=== PATIENT | female | born 1965 | race Caucasian/White ===

== ENCOUNTER 2017-01-08 12:08 | Emergency (ER) | payer MEDICARE, MEDICAID ==
[~2017-01-08] VITALS: Ht 172.7 cm; Wt 63.6 kg
[~2017-01-08 12:08] MED LIST: ALBU8.5H2 IH; AMOX-366 PO; AMOX500C2 PO; CETI10TA20 PO; CYAN50002 SL; DIAZ10TA3 PO; DICL75TA6 PO; DIVA250T4 PO; DOCU-42 PO; ESTR1TAB24 PO; LEVOXYL150 MCG PO; MAGN64TA7 PO; MELA1TAB11 PO; MORPHINE 20 MG/ML PO; MTH10T PO; MTH4T PO; OXYC1TAB24 PO; VALA1000 PO
[2017-01-08 12:16] VITALS: BP 136/88; PULSE 87; RESP 15; O2SAT 98
--- NOTE | 2017-01-08 14:06 | ED.REPORT ---
HPI-General Illness Date of Service January 08, 2017 ED Provider: Goldy Salcedo DO Pt is a 51 y.o. female with a hx of post herpetic neuralgia secondary to shingles and anesthesia dolorosa s/p brain surgery x3 secondary to trigeminal neuralgia who presents to the ED c/o severe right sided facial pain onset yesterday. She reports associated right upper extremity pain described as burning and tingling, which she states is new. Pt states that she has been taking her Valtrex (3g) and Oxycodone with no relief. Pt is currently being followed by Dr. Butler at . Nursing Notes Stated Complaint: RIGHT FACE PAIN Chief Complaint: General Complaint Nursing Notes Reviewed: Yes Allergies: Coded Allergies: celecoxib (Verified Allergy, Severe, 12/25/13) ongoing use caused critically low white count chicken derived (Verified Allergy, Severe, Shortness of Breath, 12/25/13) erythromycin ethylsuccinate (Verified Allergy, Severe, n/v, 12/25/13) latex (Verified Allergy, Severe, Anaphylaxis, 12/25/13) ondansetron (Verified Allergy, Severe, Anaphylaxis, 12/25/13) pregabalin (Verified Allergy, Unknown, 07/19/16) Uncoded Allergies: DETERGENTS (Allergy, Severe, Hives, 07/01/09) lyrica (Allergy, Unknown, Anaphylaxis, 06/07/08) Scheduled Amoxicillin (Amoxicillin) 500 Mg Capsule 500 MG PO TID Amoxicillin/Clav K 875-125 mg (Augmentin 875-125 mg) 1 Each Tablet 1 TABLET PO BID Cetirizine Chew (Cetirizine Chew) 10 Mg Tab.chew 10 MG PO DAILY Cyanocobalamin (Vitamin B-12) (Vitamin B-12) 5,000 Mcg Tab.subl 5,000 MCG SL DAILY Divalproex (Divalproex) 250 Mg Tablet.dr 250 MG PO QAM Swallowed whole without chewing to avoid local irritation of the mouth and throat. Divalproex (Divalproex) 250 Mg Tablet.dr 5 TAB PO QPM Swallowed whole without chewing to avoid local irritation of the mouth and throat. Docusate Sod-Expunged Drug, Do Not Renew! (Docusate Sod-Expunged Drug, Do Not Renew!) 100 Mg Capsule 100 MG PO HS Estradiol (Estradiol) 1 Mg Tablet 1 MG PO DAILY Levothyroxine-Expunged Drug, Do Not Renew! (Levoxyl-Expunged Drug, Do Not Renew! ) 150 Mcg Tablet 150 MCG PO DAILY Magnesium Chloride (Mag64) 64 Mg Tablet.er 64 MG PO BID Melatonin/Pyridoxine (Melatonin 3 mg Tablet) 1 Each Tablet 1 EACH PO HS Methadone (Methadone) 10 Mg Tab 10 MG PO TID Methylprednisolone (Medrol) 21 Tab/Pkg Tablet 1 TAB PO UD Follow package instructions Valacyclovir HCl-Expunged Drug, Do Not Renew! (Valtrex-Expunged Drug, Do Not Renew!) 1,000 Mg Tablet 1 TAB PO BID Scheduled PRN ([morphine 20mg/ml]) 0.5-1 ML PO Q4 PRN PRN For Pain Albuterol HFA (Proair HFA) 8.5 Gm Hfa.aer.ad 2 PUFFS IH QID PRN PRN For Shortness of Breath Diazepam-Expunged Drug, Do Not Renew! (Diazepam-Expunged Drug, Do Not Renew!) 10 Mg Tablet 5-10 MG PO BID PRN PRN For Anxiety Diclofenac ER (Diclofenac ER) 75 Mg Tablet.dr 75 MG PO BID PRN PRN For Pain oxyCODONE-Acetaminophen 5-325 mg (oxyCODONE-Acetaminophen 5-325 mg) 1 Each Tablet 1-2 TAB PO Q6H PRN PRN For Pain General Time Seen by MD: 14:06 Chief Complaint Other (Face pain) Hx Obtained From: Patient Arrived By: Walk-in Sudden in Onset?: Yes Symptom Duration: Since onset Location: : Face Quality: Burning, Painful Severity: Current: Severe Severity: Maximum: Severe Similar Sx Previous: Yes Past Medical History Past Medical History Trigeminal neuralgia s/p brain surgery x3 TIA x3 causing short term L sided deficits that have resolved Depression Anxiety Exercise induced asthma Frequent back pain due to previous trauma Hypothyroid Hx pneumonia Hx UTIs Past Surgical History Brain surgery x3 Sinus surgery x6 Appendectomy Tonsillectomy Hysterectomy Back s/p trauma Smoking History Never Smoker Social History Alcohol Use: Denies alcohol use Drug Use: Denies drug use Ambulatory Status Independent Review of Systems Right facial pain Full Review of Systems Musculoskeletal: Reports: Extremity pain (Right upper extremity) Complete sys rev & neg: except as marked. Physical Exam Vital Signs Vital Signs Date Time Temp Pulse Resp B/P Pulse Ox O2 Delivery O2 Flow Rate FiO2 01/08/17 17:30 36.5 77 15 138/78 98 Room Air 01/08/17 12:16 36.5 87 15 136/88 98 Room Air Initial VS: Reviewed Head / Eyes: Atraumatic, Normocephalic Extremities: Vascular intact, Neuro intact Neurologic: Alert, Oriented, Nonfocal General/Constitutional: Awake, Alert, Well appearing, Well developed, Well hydrated, Well nourished, Not toxic appearing Distress / Hydration: Positive: Distress moderate Behavior: Positive: Tearful Appearance / Presentation: Positive: In pain, Uncomfortable Respiratory / Chest: Atraumatic, Breath sounds NL, Breath sounds = bilat, No respiratory distress Cardiovascular: Heart rate NL, Regular rhythm, Heart sounds NL, Peripheral circulation NL Abdomen: Atraumatic, Soft, Non-tender, No distention Skin: Atraumatic, Color NL, No rash, Warm, Dry, Intact Interpretation & Diagnostics Lab Results Interpretation Test 01/08/17 15:18 Hold Purple Top Tube Received (Received) Hold [place] Top Tube Received (Received) Re-Eval/Medical Decision Med Decision/Clinical Course 51-year-old female with a history of anesthesia dolorosa and recurrent shingles presents with pain in her right trigeminal nerve, predominantly in the V2 and V3 distributions. She notes that she has not had this severe pain for some time. She takes oxycodone, uses meditation, and takes Depakote to help with her pain. She is out of Depakote today but has a refill that will be available later this afternoon. She also has Valtrex that she takes 4 times a day when she feels an outbreak of shingles coming on. She notes that she is feeling those type of symptoms here today including tingling and burning on the right side of her face as well as down her right arm. She does not feel that these symptoms are any different than symptoms she has had in the past. She denies any focal neurologic deficits in strength. Initially she appeared very comfortable. She was treated with fentanyl 100 mg, Depakote 1000 IV, and Ativan. Her pain became much more manageable and I also gave her a fourth dose of her Valtrex prior to departure. She appeared much more comfortable and requested to go home. As patient has a long history of this, she is comfortable treating herself with medication she has at home Source of Hx: Old records Time of Eval: 16:34 Re-Evaluation/Progress Note: Pt rechecked. Pt is feeling improved and is requesting to be discharged. Counseled Regarding: Diagnosis, Need for follow-up, When/why to return to ED Discharge & Departure Primary Impression: Trigeminal neuralgia of right side of face Additional Impression: Anesthesia dolorosa in distribution of trigeminal nerve Disposition: Home Discharge Condition All VS Reviewed: Yes Condition: Stable Additional Instructions: Your emergency room visit today consisted of pain relief with fentanyl and Ativan as well as a dose of Valtrex and Depakote to help with the chronic pain. I am glad that you are feeling better after being treated here. I am sorry that you suffer from this difficult problem. Please peanut picker your Depakote and continue your home medications as prescribed. You may return to the emergency department if your symptoms worsen. Referrals: OTHER,PHYSICIAN (PCP) [facility] Arelis Attestation Portions of this note were transcribed by Sera Raymundo. I, Dr. Salcedo personally performed the history, physical exam and medical decision-making; I reviewed and confirmed the accuracy of the information in the transcribed note. Signed by: Arelis Arias, 01/08/17 and 1705 copies to: [facility] Goldy Salcedo DO January 08, 2017 14:06 SERA RAYMUNDO January 08, 2017 14:53
[2017-01-08] MEDS ORDERED: fentaNYL-PF 50 mCg/mL 2 mL Inj IVPUSH ONE ×2 (14:55→17:05)
[2017-01-08] MEDS ORDERED: Valproate Sodium Inj 1,000 MG in Dextrose 5% 100 ML IV ONE (14:55)
[2017-01-08 17:30] VITALS: BP 138/78; PULSE 77; RESP 15; O2SAT 98
== END 2017-01-08 17:31 | disposition home or self-care (01) ==
LOC: SED 12:08
DX: G50.0 Trigeminal neuralgia (principal); Z86.73 Personal history of transient ischemic attack (TIA), and cerebral infarction without residual deficits; E03.9 Hypothyroidism, unspecified; Z90.710 Acquired absence of both cervix and uterus; Z87.440 Personal history of urinary (tract) infections; Z79.899 Other long term (current) drug therapy; Z88.1 Allergy status to other antibiotic agents; Z88.8 Allergy status to other drugs, medicaments and biological substances; Z91.040 Latex allergy status
CPT/HCPCS: 96374; 96375; 96376; 99284; J2060; J3010

== ENCOUNTER 2017-05-31 12:58 | Emergency (ER) | payer MEDICARE, MEDICAID ==
[~2017-05-31] VITALS: Ht 177.8 cm; Wt 60.9 kg
[2017-05-31 13:06] VITALS: BP 108/51; PULSE 95; RESP 18; O2SAT 99
--- NOTE | 2017-05-31 15:54 | ED.REPORT ---
HPI-Dental/Mouth Prob Date of Service May 31, 2017 ED Provider: Nigel Villa MD Pt is a 52 year old female with a history of trigeminal neuralgia with anesthesia dolorosa and TIA who presents to the ED c/o dental pain onset 5 days. She states that she recently broke her left lower molar that has triggered her trigeminal neuralgia. She has taken depakote, oxycodone, and lidocaine patches for her pain. Additional symptoms include difficulty eating, swelling along the jaw line, and hypotension with the lowest at 80/50. She denies fever. Pt states that she cannot go to the dentist because she would need IV seizure meds for her tooth extraction. Nursing Notes Stated Complaint: TRIGEMINAL NEURALGIA,DENTAL PAIN Chief Complaint: Dental Nursing Notes Reviewed: Yes ([employer], meds not reconciled ) Allergies: Coded Allergies: celecoxib (Verified Allergy, Severe, 05/31/17) ongoing use caused critically low white count chicken derived (Verified Allergy, Severe, Shortness of Breath, 05/31/17) erythromycin ethylsuccinate (Verified Allergy, Severe, n/v, 05/31/17) latex (Verified Allergy, Severe, Anaphylaxis, 05/31/17) ondansetron (Verified Allergy, Severe, Anaphylaxis, 05/31/17) pregabalin (Verified Allergy, Unknown, 05/31/17) Uncoded Allergies: DETERGENTS (Allergy, Severe, Hives, 07/01/09) lyrica (Allergy, Unknown, Anaphylaxis, 06/07/08) Scheduled Amoxicillin (Amoxicillin) 500 Mg Capsule 500 MG PO TID Amoxicillin/Clav K 875-125 mg (Augmentin 875-125 mg) 1 Each Tablet 1 TABLET PO BID Amoxicillin/Clav K 875-125 mg (Augmentin 875-125 mg) 1 Each Tablet 1 TABLET PO BID Cetirizine Chew (Cetirizine Chew) 10 Mg Tab.chew 10 MG PO DAILY Cyanocobalamin (Vitamin B-12) (Vitamin B-12) 5,000 Mcg Tab.subl 5,000 MCG SL DAILY Divalproex (Divalproex) 250 Mg Tablet.dr 250 MG PO QAM Swallowed whole without chewing to avoid local irritation of the mouth and throat. Divalproex (Divalproex) 250 Mg Tablet.dr 5 TAB PO QPM Swallowed whole without chewing to avoid local irritation of the mouth and throat. Docusate Sod-Expunged Drug, Do Not Renew! (Docusate Sod-Expunged Drug, Do Not Renew!) 100 Mg Capsule 100 MG PO HS Estradiol (Estradiol) 1 Mg Tablet 1 MG PO DAILY Levothyroxine-Expunged Drug, Do Not Renew! (Levoxyl-Expunged Drug, Do Not Renew! ) 150 Mcg Tablet 150 MCG PO DAILY Magnesium Chloride (Mag64) 64 Mg Tablet.er 64 MG PO BID Melatonin/Pyridoxine (Melatonin 3 mg Tablet) 1 Each Tablet 1 EACH PO HS Methadone (Methadone) 10 Mg Tab 10 MG PO TID Methylprednisolone (Medrol) 21 Tab/Pkg Tablet 1 TAB PO UD Follow package instructions Prednisone (PredniSONE) 20 Mg Tablet 40 MG PO DAILY Valacyclovir HCl-Expunged Drug, Do Not Renew! (Valtrex-Expunged Drug, Do Not Renew!) 1,000 Mg Tablet 1 TAB PO BID Scheduled PRN ([morphine 20mg/ml]) 0.5-1 ML PO Q4 PRN PRN For Pain Albuterol HFA (Proair HFA) 8.5 Gm Hfa.aer.ad 2 PUFFS IH QID PRN PRN For Shortness of Breath Diazepam-Expunged Drug, Do Not Renew! (Diazepam-Expunged Drug, Do Not Renew!) 10 Mg Tablet 5-10 MG PO BID PRN PRN For Anxiety Diclofenac ER (Diclofenac ER) 75 Mg Tablet.dr 75 MG PO BID PRN PRN For Pain Fluconazole (Fluconazole) 150 Mg Tablet 150 MG PO ONCE PRN PRN yeast infection oxyCODONE-Acetaminophen 10-325 mg (oxyCODONE-Acetaminophen 10-325 mg) 1 Each Tablet 1 TABLET PO Q6H PRN PRN For Pain oxyCODONE-Acetaminophen 5-325 mg (oxyCODONE-Acetaminophen 5-325 mg) 1 Each Tablet 1-2 TAB PO Q6H PRN PRN For Pain General Time Seen by MD: 15:52 Chief Complaint Tooth pain Hx Obtained From: Patient, Spouse Arrived By: Walk-in Onset Occurred: 5 days ago Symptom Duration: Constant Quality: Painful Severity: Current: Moderate Severity: Maximum: Severe Recent Healthcare: No recent doctor visit, No recent hospitalization Similar Sx Previous: Yes Past Medical History Past Medical History Trigeminal neuralgia s/p brain surgery x3 TIA x3 causing short term L sided deficits that have resolved Depression Anxiety Exercise induced asthma Frequent back pain due to previous trauma Hypothyroid Hx pneumonia Hx UTIs Past Surgical History Brain surgery x3 Sinus surgery x6 Appendectomy Tonsillectomy Hysterectomy Back s/p trauma Smoking History Never Smoker Social History Alcohol Use: Denies alcohol use Drug Use: Denies drug use Ambulatory Status Independent Review of Systems Review of Systems Note: Dental pain Difficulty eating Swelling along the jaw line Hypotension with lowest reading at 80/50 Constitutional: Denies: Fever Ears / Nose / Throat: Reports: Mouth pain Complete sys rev & neg: except as marked. Physical Exam Initial Vital Signs Vital Signs (First) Date Time Temp Pulse Resp B/P Pulse Ox O2 Delivery O2 Flow Rate FiO2 05/31/17 13:06 36.4 95 18 108/51 99 Room Air Initial VS: Reviewed, Vital signs normal Lymphatic: No lymphadenopathy Extremities: Vascular intact, Neuro intact, No swelling, No tenderness Neurologic: Alert, Oriented, Nonfocal ENT: Atraumatic, Airway patent, Tympanic membs NL, No facial swelling No dental abscess or swelling Cracked left lower most rear molar, tooth #1 Ear and submandibular glands are normal Neck: Supple, Full range of motion, No swelling General/Constitutional: Awake, Alert Behavior: Positive: Anxious Clutching face with a lidocaine patch on her right-side of face Respiratory / Chest: Atraumatic, Breath sounds NL, Breath sounds = bilat, No respiratory distress Cardiovascular: Heart rate NL, Regular rhythm, Heart sounds NL Skin: Warm, Dry No current zoster Interpretation & Diagnostics Lab Results Interpretation Result Diagram: 05/31/17 1638 05/31/17 1638 Test 05/31/17 16:38 White Blood Count 6.0th/mm3 (3.8-10.1) Red Blood Count 4.54mil/mm3 (3.90-5.20) Hemoglobin 13.5g/dL (12.0-15.6) Hematocrit 41.3% (35.0-46.0) Mean Corpuscular Volume 91.0fL (81-100) Mean Corpuscular Hemoglobin 29.7pg (27.0-35.0) Mean Corpuscular Hemoglobin Concent 32.7% (32.0-37.0) Red Cell Distribution Width 12.7% (12.3-15.4) Platelet Count 227bil/L (150-400) Neutrophils (%) (Auto) 48.0% (40-74) Lymphocytes (%) (Auto) 39.8% (14-46) Monocytes (%) (Auto) 8.1% (4-12) Eosinophils (%) (Auto) 3.6% (0-5) Basophils (%) (Auto) 0.5% (0-3) Sodium Level 133mEq/L (134-144) Potassium Level 4.9mEq/L (3.5-5.2) Chloride Level 93mEq/L (97-108) Carbon Dioxide Level 31mmol/L (18-29) Blood Urea Nitrogen 20mg/dL (6-24) Creatinine 0.83mg/dL (0.57-1.00) Estimat Glomerular Filtration Rate 103mL/min (>59) Glucose Level 88mg/dL (60-99) Calcium Level 9.3mg/dL (8.5-10.1) Total Bilirubin 0.3mg/dL (0.0-1.2) Aspartate Amino Transf (AST/SGOT) 20U/L (0-50) Alanine Aminotransferase (ALT/SGPT) 19U/L (0-32) Alkaline Phosphatase 72U/L (25-150) Total Protein 7.9g/dL (6.4-8.4) Albumin 4.5g/dL (3.4-5.0) Re-Eval/Medical Decision Med Decision/Clinical Course This is a 52-year-old female presents complaining of severe left-sided facial pain, reports she has a cracked tooth t that developed over the past 2 weeks, and she is concerned may now developed an infection, and she thinks the inflammation has triggered her trigeminal neuralgia and anesthesia dolorosa tissue presents a severe left-sided facial pain. Denies fever, difficulty swallowing, but is very concerned. She is on chronic Depakote reports have any dental work she requires "IV seizure medications" so she cannot be seen by normal dentist. She is allegedly she was advised of her . She is extremely anxious. There is a fractured tooth #1, but I don't appreciate kemar signs of abscess or infection, certainly nothing but on objective exam is amenable to incision and drainage. There is no cervical adenopathy redness. The patient does have light tenderness everywhere on the left side of the face. There is no evidence airway, otherwise. There is no findings of Franco's angina She received titrated pain medicine, given her history and concern she received empiric steroids and a dose of Unasyn-and on re- examined she is much improved. Plan is discharge to home on a continued course of antibiotics with Augmentin, I 've also written for short course of prednisone, I recommended follow-up with an oral surgeon given which she described but indicates she may need to call around as he still requires a dentist for definitive care of the tooth. I written for #15 oxycodone supplemented her chronic supply given the need for increased use over the next day or 2. Routine return cautions reviewed, patient' s discharged much improved condition. Source of Hx: Old records Re-Evaluation/Progress : Time of Eval: 18:31 Patient Status: Condition improved Re-Evaluation/Progress Note: Patient rechecked. Discussed plan for discharge. Patient understands and agrees with plan. Follow-up and return to ED warnings given. All questions addressed. Counseled Regarding: Diagnosis, Lab results, Need for follow-up, When/why to return to ED Discharge & Departure Primary Impression: Pain, dental Additional Impressions: Trigeminal neuralgia of left side of face Anesthesia dolorosa in distribution of trigeminal nerve Disposition: Home Discharge Condition All VS Reviewed: Yes Condition: Stable Additional Instructions: 1. Take the antibiotic Augmentin 875 mg twice a day for another 10 days. 2. Take the steroid prednisone 40 mg a day for the next 5. 3. Continue your diclofenac. 4. Continue your Depakote. 5. Continue the oxycodone. 6. You do need to follow up with a dentist for definitive care. I recommended calling the oral surgeon Dr. Jimenes in [place] ([facility] at ). You can also try [facility]. Referrals: OTHER,PHYSICIAN (PCP) Scribe Attestation Portions of this note were transcribed by Radha Dudley. I, Dr. Villa, personally performed the history, physical exam and medical decision-making; I reviewed and confirmed the accuracy of the information in the transcribed note. Nigel Villa MD May 31, 2017 15:54 Radha Dudley May 31, 2017 16:03
[2017-05-31] MEDS ORDERED: Ampicillin-Sulbactam Inj 3,000 MG in 0.9% Sodium Chloride 100 ML IV ONE (16:05)
[2017-05-31] MEDS ORDERED: HYDROmorphone 1 mg/mL Inj IVPUSH ONE ×3 (16:05→18:50)
[2017-05-31] MEDS ORDERED: Dexamethasone Inj 10 MG in 0.9% Sodium Chloride-Pha MIX 50 ML IV ONE (16:05)
[2017-05-31 16:43] LABS: BASOPHILS % (AUTO) 0.5 % (0-3); EOSINOPHILS % (AUTO) 3.6 % (0-5); MONOCYTES % (AUTO) 8.1 % (4-12); Mean Corpuscular Hemoglobin 29.7 pg (27.0-35.0); Platelet Count 227 bil/L (150-400)
[2017-05-31 17:15] VITALS: BP 113/70; PULSE 81; O2SAT 97
[2017-05-31] MEDS ORDERED: PRE20 PO (18:45)
[2017-05-31] MEDS ORDERED: AMOX-366 PO (18:46)
[2017-05-31] MEDS ORDERED: OXYC-466 PO (18:46)
[2017-05-31 19:01] VITALS: BP 117/72; PULSE 95; RESP 18; O2SAT 94
[2017-05-31] MEDS ORDERED: FLUC150T3 PO (19:07)
== END 2017-05-31 19:11 | disposition home or self-care (01) ==
LOC: SED 12:58
DX: K08.89 Other specified disorders of teeth and supporting structures (principal); G50.0 Trigeminal neuralgia; T41.205A Adverse effect of unspecified general anesthetics, initial encounter; X58.XXXA Exposure to other specified factors, initial encounter; Y93.89 Activity, other specified; Y92.89 Other specified places as the place of occurrence of the external cause; Y99.8 Other external cause status; R63.3 Feeding difficulties; R22.0 Localized swelling, mass and lump, head; F41.8 Other specified anxiety disorders; E03.9 Hypothyroidism, unspecified; Z86.73 Personal history of transient ischemic attack (TIA), and cerebral infarction without residual deficits; Z87.01 Personal history of pneumonia (recurrent); Z87.440 Personal history of urinary (tract) infections; Z90.710 Acquired absence of both cervix and uterus; Z90.89 Acquired absence of other organs; Z98.890 Other specified postprocedural states; Z88.1 Allergy status to other antibiotic agents; Z88.8 Allergy status to other drugs, medicaments and biological substances; Z91.018 Allergy to other foods; Z91.040 Latex allergy status
CPT/HCPCS: 36415; 80053; 85025; 96365; 96375; 96376; 99284; J0295; J1100; J1170; J2060